=== PATIENT | male | born 1990 | race Caucasian/White ===

== ENCOUNTER 2019-06-20 09:18 | Emergency (ER) | payer OTHER ==
[~2019-06-20] VITALS: Ht 182.9 cm; Wt 98.0 kg
[2019-06-20] MEDS ORDERED: normal saline 1000ML IV soln IVB ONE (11:35)
[2019-06-20] MEDS ORDERED: ketorolac trometh. 30mg/ml inj. IV ONE (11:35)
[2019-06-20] MEDS ORDERED: metoclopramide 5 mg/ml inj IV ONE (11:35)
[2019-06-20] MEDS ORDERED: diphenhydrAMINE 50 mg/ml inj IV ONE (11:35)
[2019-06-20] MEDS ORDERED: LORazepam 2 mg/ml vial IV ONE (13:25)
[2019-06-20] MEDS ORDERED: divalproex sodium 500mg tablet.DR PO ONE (13:25)
[2019-06-20] MEDS ORDERED: magnesium 2GM in 50ml NS 50 ML IV ONE (13:25)
[2019-06-20 13:26] VITALS: BP 138/96
[2019-06-20] MEDS ORDERED: proparacaine 0.5% ophthalmic drops 15ml EACHEYE ONE (14:00)
[2019-06-20] MEDS ORDERED: morphine 4 MG/ML inj SYRINge IV ONE (15:40)
[2019-06-20] MEDS ORDERED: SUMA100T16 PO (15:54)
== END 2019-06-20 16:11 | disposition home or self-care (01) ==
LOC: ER 09:19
DX: G43.909 Migraine, unspecified, not intractable, without status migrainosus (principal)
CPT/HCPCS: 70450; 87502; 87503; 96365; 96375; 99284; J1200; J1885; J2060; J2270; J2765; J3475; J7030